=== PATIENT | male | born 1970 | race Caucasian/White ===

== ENCOUNTER → 2023-10-01 11:12 | Outpatient (REF) | payer OTHER, SELFPAY | LOC: RAD 11:12 | PROVIDERS: ATTENDING PHYSICIAN Internal Medicine Gastroenterology; FAMILY PHYSICIAN Nurse Practitioner Primary Care | DX: K51.90 Ulcerative colitis, unspecified, without complications (principal) | CPT/HCPCS: 71046 ==

== ENCOUNTER → 2024-09-02 10:25 | Outpatient (REF) | payer OTHER, SELFPAY | LOC: RAD 10:25 | PROVIDERS: ATTENDING PHYSICIAN Nurse Practitioner Primary Care | DX: J40 Bronchitis, not specified as acute or chronic (principal) | CPT/HCPCS: 71046 ==

== ENCOUNTER → 2025-02-27 07:49 | Outpatient (REF) | payer OTHER, SELFPAY | LOC: MRI 07:49 | PROVIDERS: ATTENDING PHYSICIAN Nurse Practitioner Primary Care | DX: K86.89 Other specified diseases of pancreas (principal) | CPT/HCPCS: 74183; A9575 ==

== ENCOUNTER 2025-06-20 00:36 | Emergency (ER) | payer OTHER, SELFPAY ==
[2025-06-20 00:37] VITALS: BP 138/95
[2025-06-20 01:05] VITALS: BMI 31.2
--- NOTE | 2025-06-20 01:05 | ED.GENMED ---
History of Present Illness
General
Chief Complaint: Male Genito-Urinary Symptoms
Source: patient
Time Seen by Provider: 06/20/25 00:52
History of Present Illness
History of Present Illness:
54-year-old male presents to the emergency room complaining of urinary frequency and urgency which started earlier today. This evening began having some pain in his right lower quadrant. Pain is colicky in nature. No fever, chills, nausea or
vomiting. Patient has a history of Crohn's disease for which he uses Skyrizi. He has not required any abdominal operations for his Crohn's. He describes it is well-controlled with medication. The right lower quadrant pain seems to be a bit worse
with movement.
Past History
Past History
ED Past Medical History: GERD, Psychiatric (anxiety) and Other (Crohn's disease, C-diff)
ED Past Surgical History: Appendectomy
Social History
Tobacco: Non-smoker
Alcohol: Occasional
Drug: None
Personal: Other
Living: with family
Employment: Other
Family History
Family History: Other
Phy Exam
Physical Exam
Physical Exam:
General: Awake, Alert, Oriented X3. No acute distress.
Vitals: unremarkable
Head: Atraumatic
Eyes: Pupils equal, EOMI
Throat: Airway intact, no exudates
Neck: Trachea midline
Lungs: Clear and equal b/l
Heart: Regular rate, no murmurs
Abd: Soft, Nontender, No pulsatile mass
Back: mild right cva tenderness to percussion
Neuro: Nonfocal
Skin: Warm, dry, no rash
Extremities: pulses equal b/l, no edema
Course
Orders/Labs/Results
Orders:
Orders
06/20/25 01:00
Urinalysis Reflex To Culture Urgent
Date Specimen was Collected: 06/20/25
Time Specimen was Collected: 00:42
Urine Microscopic Reflex Cult Urgent
Urine Culture Urgent
JOHNNY Source: U
Specimen Description:
Date Specimen was Collected: 06/20/25
Time Specimen was Collected: 00:42
06/20/25 01:44
CT Abd/pel Without Iv Or Oral Urgent
Comment:
Reason For Exam: right flank pain
06/20/25 01:48
Basic Metabolic Panel Urgent
Complete Blood Count/With Diff Urgent
06/20/25 02:54
Cephalexin Monohydrate [Keflex] 500 mg PO NOW STA
Abnormal Lab Results
06/20/25 06/20/25
01:00 01:48
MCH 32.8 H pg
(27.0-31.0)
Absolute Monos (auto) 1.0 H 10^3/uL
(0.1-0.6)
Monocytes % 11.1 H %
(1.7-9.3)
Glucose 105 H mg/dl
(70-99)
Ur Occult Blood Reflex 2+ A
(Negative)
Urine RBC 16-20 A /HPF
(0-2)
Urine Bacteria (Reflex) Moderate A
(Negative)
Urine Albumin (Reflex) 1+ A
(Neg - Trace)
06/20/25 01:48
06/20/25 01:48
Vital Signs
Initial and Last Documented VS:
Initial Vital Signs
Temp Pulse Resp BP Pulse Ox
99.4 F 75 16 138/95 99
06/20/25 00:37 06/20/25 00:37 06/20/25 00:37 06/20/25 00:37 06/20/25 00:37
Last Documented Vital Signs
Temp Pulse Resp BP Pulse Ox
99.4 F 68 18 117/76 98
06/20/25 00:37 06/20/25 03:08 06/20/25 03:08 06/20/25 03:08 06/20/25 03:08
MDM/Problems Addressed
Differential Diagnosis Includes:
cystitis, pyelo, kidney stone
MDM/Problems Addressed:
Patient presents with urgency, frequency and some suprapubic pain. CT shows no evidence of an obstructive uropathy. Urinalysis is suggestive of UTI with increased white blood cells and red blood cells. Will cover with antibiotics. Follow-up with
primary care provider in a week.
*Radiology
Radiology exam reviewed: other (Patient report reviewed. No obstructing stone noted)
*Pulse Oximetry
SaO2: 99
Oxygen Mode of Delivery: Room air
Patient hypoxic: no
*Critical Care Note
Total Time (30-74mins, 75-104mins- exclusive of procedures): Not Applicable
ED Attending Note
-
Portions of this chart may have been created with voice recognition software.� Occasional wrong word or��sound alike� substitutions may have occurred due to the inherent limitations of voice recognition software.
Discharge Plan
Departure
Patient Disposition: Home (Routine Discharge)
Date of Disposition: 06/20/25
Time of Disposition: 02:54
Patient with high blood pressure during this ER visit?: Yes
Discharge Problem:
Abdominal pain, Acute UTI
Instructions: Urinary tract infections in adults, BLOOD PRESSURE
Prescriptions:
New
cephalexin 500 mg capsule
500 mg PO BID Qty: 14 0RF
No Action
prednisone 20 MG tablet
10 mg PO DAILY
sertraline [Zoloft] 100 MG tablet
100 mg PO DAILY
esomeprazole magnesium [Nexium] 20 MG capsule,delayed release(DR/EC)
40 mg PO DAILY
oseltamivir [Tamiflu] 75 MG capsule
75 mg PO BID Qty: 10 0RF
ondansetron 4 MG tablet,disintegrating
4 mg PO TIDPRN PRN (Reason: nausea) Qty: 10 0RF
ondansetron 4 MG tablet,disintegrating
4 mg PO TIDPRN PRN (Reason: nausea/vomiting) Qty: 6 0RF
prednisone 20 mg tablet
20 mg PO DAILY 5 Days Qty: 5 0RF
epinephrine [EpiPen 2-Jean] 0.3 mg/0.3 mL auto-injector
0.3 mg IM ONCE PRN (Reason: anaphylaxis) Qty: 2 0RF
Referrals:
Sherri Romero CRNP [Family Provider, Internal Medicine]
Duncan Nicoel MD [Active, Urology]
Interventions
Interventions:
*General Assessment Last Done: 06/20/25 01:05
*Neglect/Abuse Screening Last Done: 06/20/25 00:40
*ED COVID-19 Vaccine History Last Done: 06/20/25 00:40
*ED Influenza Vaccine History Last Done: 06/20/25 00:40
[facility] Fall Risk Assessment Tool Last Done: 06/20/25 01:05
*Risk Screen - Suicide (C-SSRS) Last Done: 06/20/25 03:09
*Nursing Disposition Last Done: 06/20/25 03:08
ED-Male Genitourinary Assessment Last Done: 06/20/25 01:05
Discharge Date and Time
Discharge Date/Time: 06/20/25 03:09
Print Language: [email or web address]
[2025-06-20 01:19] LABS: Urine Character Clear (Clear)
[2025-06-20 01:44] LABS: Urine Red Blood Cell 16-20 /HPF (0-2)
[2025-06-20 02:02] LABS: Hematocrit 43.0 % (39.0-52.0); Hemoglobin 15.5 g/dL (13.0-18.0); Mean Corp Hgb Conc. 36.0 g/dL (33.0-37.0); Mean Corpuscular Volume 91.1 fL (80.0-94.0); Nucleated Red Blood Cells % 0 % (-); Platelet Count 287 10^3/uL (130-400); Red Cell Dist. Width 12.2 % (11.5-14.5)
[2025-06-20 02:25] LABS: Blood Urea Nitrogen 17 mg/dl (9-20); Calcium 9.6 mg/dl (8.4-10.2); Carbon Dioxide 29 mmol/L (22-30); Chloride 104 mmol/L (98-107); Estimated Creatinine Clearance 90 ml/min; Glucose 105 mg/dl (70-99); Potassium 3.7 mmol/L (3.5-5.1); Sodium 139 mmol/L (135-145); eGFR > 60.00
[2025-06-20] MEDS: KEFLEX 500 MG PO (03:05)
[2025-06-20 03:08] VITALS: BP 117/76
== END 2025-06-20 03:09 | disposition home or self-care (01) ==
LOC: EMR 00:36
PROVIDERS: Emergency Medicine; EMERGENCY PHYSICIAN Emergency Medicine; FAMILY PHYSICIAN Nurse Practitioner Primary Care
DX: N39.0 Urinary tract infection, site not specified (principal); R10.24 Suprapubic pain
CPT/HCPCS: 99284; 74176; 80048; 81003; 81015; 85025; 87086